=== PATIENT | male | born 1985 | race American Indian/Alaskan Native ===

== ENCOUNTER 2018-06-24 21:05 | Emergency (ER) | payer SELFPAY ==
[2018-06-24 21:21] VITALS: BMI 25.1
[2018-06-24 21:24] VITALS: RESP 18; TEMP 98.9
--- NOTE | 2018-06-24 21:32 | ED PDOC ---
Arrival/HPI <Shweta Villarreal PA-C - Last Filed: 06/26/18 16:32> - General Historian: Patient - History of Present Illness Narrative History of Present Illness (Text): 06/24/18 21:32 Jannette Muller is a 32 year old male, whose past medical history includes appendectomy and liposuction, who presents to the emergency department complaining of abdominal pain. Patient states he has been experiencing mid abdominal pain this evening with associated nausea and vomiting. Patient denies any fever, chills, diarrhea, urinary symptoms, back pain, neck pain, headache, dizziness, or any other complaints. Symptom Onset: Gradual Symptom Course: Unchanged Activities at Onset: Light Context: Home <Sanket Deluca - Last Filed: 06/27/18 19:50> - General Chief Complaint: Abdominal Pain Time Seen by Provider: 06/24/18 21:27 Past Medical History - Provider Review Nursing Documentation Reviewed: Yes - Psychiatric Hx Substance Use: No - Surgical History Hx Appendectomy: Yes (2014) <Sanket Deluca - Last Filed: 06/27/18 19:50> Family/Social History - Physician Review Nursing Documentation Reviewed: Yes Family/Social History: Unknown Family HX Smoking Status: Light Smoker < 10 Cigarettes Daily Hx Alcohol Use: No Hx Substance Use: No <Sanket Deluca - Last Filed: 06/27/18 19:50> Allergies/Home Meds <Shweta Villarreal PA-C - Last Filed: 06/26/18 16:32> <Sanket Deluca - Last Filed: 06/27/18 19:50> Allergies/Adverse Reactions: Allergies acetaminophen [From Tylenol] Allergy (Severe, Verified 06/25/18 08:20) SHORTNESS OF BREATH ibuprofen Allergy (Severe, Verified 06/25/18 08:20) SHORTNESS OF BREATH Penicillins Allergy (Severe, Verified 06/25/18 08:20) SHORTNESS OF BREATH Home Medications: Home Meds Medication Instructions Recorded Confirmed Oxycodone HCl/Acetaminophen 1 mg PO Q4 PRN 08/30/15 08/30/15 [Percocet 5-325 mg Tablet] traMADol [Ultram] 1 tab Q6 10/05/17 10/05/17 Review of Systems - Physician Review All systems were reviewed & negative as marked: Yes - Review of Systems Constitutional: Normal. absent: Fevers Eyes: Normal ENT: Normal Respiratory: Normal. absent: SOB, Cough Cardiovascular: Normal. absent: Chest Pain Gastrointestinal: Abdominal Pain, Nausea, Vomiting. absent: Diarrhea Genitourinary Male: Normal. absent: Dysuria, Frequency, Hematuria, Urinary Output Changes Musculoskeletal: Normal. absent: Back Pain, Neck Pain Skin: Normal. absent: Rash Neurological: Normal. absent: Headache, Dizziness Endocrine: Normal Hemo/Lymphatic: Normal Psychiatric: Normal <YosiSanket - Last Filed: 06/27/18 19:50> Physical Exam Vital Signs Temp Pulse Resp BP Pulse Ox 06/25/18 00:13 88 18 130/84 100 06/24/18 21:21 98.9 F 95 H 18 134/91 H 97 <Shweta Villarreal PA-C - Last Filed: 06/26/18 16:32> Vital Signs Reviewed: Yes Vital Signs Temp Pulse Resp BP Pulse Ox 06/24/18 21:21 98.9 F 95 H 18 134/91 H 97 Temperature: Afebrile Blood Pressure: Normal Pulse: Regular Respiratory Rate: Normal Appearance: Positive for: Well-Appearing, Non-Toxic, Comfortable Pain Distress: None Mental Status: Positive for: Alert and Oriented X 3 - Systems Exam Head: Present: Atraumatic, Normocephalic Pupils: Present: PERRL Extroacular Muscles: Present: EOMI Conjunctiva: Present: Normal Mouth: Present: Moist Mucous Membranes Neck: Present: Normal Range of Motion Respiratory/Chest: Present: Clear to Auscultation, Good Air Exchange. No: Respiratory Distress, Accessory Muscle Use Cardiovascular: Present: Regular Rate and Rhythm, Normal S1, S2. No: Murmurs Abdomen: No: Tenderness, Distention, Peritoneal Signs Back: Present: Normal Inspection Upper Extremity: Present: Normal Inspection. No: Cyanosis, Edema Lower Extremity: Present: Normal Inspection. No: Edema Neurological: Present: GCS=15, CN II-XII Intact, Speech Normal Skin: Present: Warm, Dry, Normal Color. No: Rashes Psychiatric: Present: Alert, Oriented x 3, Normal Insight, Normal Concentration <YolandatawandaSanket - Last Filed: 06/27/18 19:50> Medical Decision Making - Lab Interpretations Lab Results: PT 12.0 SECONDS (9.4-12.5) 06/24/18 22:14 INR 1.05 06/24/18 22:14 APTT 31.3 Seconds (25.1-36.5) 06/24/18 22:14 Total Bilirubin 0.9 mg/dL (0.2-1.3) 06/24/18 22:14 AST 61 U/L (17-59) H 06/24/18 22:14 ALT 35 U/L (7-56) 06/24/18 22:14 Alkaline Phosphatase 65 U/L (38-126) 06/24/18 22:14 Total Protein 8.5 g/dL (5.8-8.3) H 06/24/18 22:14 Albumin 4.9 g/dL (3.0-4.8) H 06/24/18 22:14 Globulin 3.7 gm/dL 06/24/18 22:14 Albumin/Globulin Ratio 1.3 (1.1-1.8) 06/24/18 22:14 Amylase 117 U/L (35-125) 06/24/18 22:14 Lipase 105 U/L (23-300) 06/24/18 22:14 Urine Color Yellow (YELLOW) 06/24/18 22:21 Urine Appearance Cloudy (CLEAR) 06/24/18 22:21 Urine pH 7.5 (4.7-8.0) 06/24/18 22:21 Ur Specific [place] 1.020 (1.005-1.035) 06/24/18 22:21 Urine Protein Trace mg/dL (<30 mg/dL) H 06/24/18 22:21 Urine Glucose (UA) Negative mg/dL (NEGATIVE) 06/24/18 22:21 Urine Ketones Trace mg/dL (NEGATIVE) H 06/24/18 22:21 Urine Blood Trace-intact (NEGATIVE) H 06/24/18 22:21 Urine Nitrate Negative (NEGATIVE) 06/24/18 22:21 Urine Bilirubin Negative (NEGATIVE) 06/24/18 22:21 Urine Urobilinogen 1.0 E.U./dL (<1 E.U./dL) H 06/24/18 22:21 Ur Leukocyte Esterase Negative Mehran/uL (NEGATIVE) 06/24/18 22:21 Urine RBC 2 - 5 /hpf (0-2) H 06/24/18 22:21 Urine WBC 0 - 2 /hpf (0-6) 06/24/18 22:21 Ur Epithelial Cells 1 - 3 /hpf (0-5) 06/24/18 22:21 Amorphous Sediment Many /hpf (NONE) 06/24/18 22:21 Urine Bacteria Many /hpf (NONE) 06/24/18 22:21 - RAD Interpretation Radiology Orders: 06/24/18 22:33 ABD & PELVIS IV CONTRAST ONLY [CT] Stat - Medication Orders Current Medication Orders: Discontinued Medications Ciprofloxacin (Cipro) 500 mg PO ONCE STA; Protocol Stop: 06/24/18 23:58 Last Admin: 06/25/18 00:10 Dose: 500 mg Famotidine (Pepcid) 20 mg IVP STAT STA Stop: 06/24/18 21:38 Last Admin: 06/24/18 21:59 Dose: 20 mg IVP Administration Document 06/24/18 21:59 AD (Rec: 06/24/18 21:59 AD [id number]) Charges for Administration # of IVP Administrations 1 Sodium Chloride (Sodium Chloride 0.9%) 1,000 mls @ 1,000 mls/hr IV .Q1H STA Stop: 06/24/18 22:36 Last Admin: 06/24/18 21:58 Dose: 1,000 mls/hr eMAR Start Stop Document 06/24/18 21:58 AD (Rec: 06/24/18 21:58 AD [id number]) Intravenous Solution Start Date 06/24/18 Start Time 21:58 Ketorolac Tromethamine (Toradol) 15 mg IVP STAT STA Stop: 06/24/18 21:38 Last Admin: 06/24/18 21:58 Dose: 15 mg MAR Pain Assessment Document 06/24/18 21:58 AD (Rec: 06/24/18 21:58 AD [id number]) Pain Reassessment Is this a pain reassessment? No Description Intensity of Pain at present 8 IVP Administration Document 06/24/18 21:58 AD (Rec: 06/24/18 21:58 AD [id number]) Charges for Administration # of IVP Administrations 1 Ondansetron HCl (Zofran Inj) 4 mg IVP STAT STA Stop: 06/24/18 21:38 Last Admin: 06/24/18 21:58 Dose: 4 mg IVP Administration Document 06/24/18 21:58 AD (Rec: 06/24/18 21:58 AD [id number]) Charges for Administration # of IVP Administrations 1 <Shweta Villarreal PA-C - Last Filed: 06/26/18 16:32> ED Course and Treatment: 06/24/18 21:32 Impression: 32 year old male complaining of mid abdominal pain, nausea, and vomiting. Plan: -- Labs, amylase, lipase -- UA -- IV fluids -- Zofran -- Pepcid -- Reassess and disposition Prior Visits: Notes and results from previous visits were reviewed. Progress Notes: 06/24/18 23:38 CT Abdomen and Pelvis: LUNG BASES: The lung bases appear clear. No pleural effusions are seen. LIVER: Unremarkable. GALLBLADDER AND BILE DUCTS: The gallbladder is contracted. No radioopaque gallstones are seen. No biliary ductal dilatation is evident. PANCREAS: Unremarkable. SPLEEN: Unremarkable. ADRENAL GLANDS: Unremarkable. KIDNEYS, URETERS, AND BLADDER: The kidneys appear within normal limits. There is no hydronephrosis or hydroureter. No urinary calculi are seen. STOMACH AND BOWEL: Thick walled fluid filled duodenum and loops of jejunum as well as ileum compatible with enteritis. Thick walled fluid filled colon is noted with involvement of all segments compatible with diffuse pancolitis. APPENDIX: No evidence of acute appendicitis on CT examination. PERITONEUM: No free fluid. No free air. LYMPH NODES: No lymphadenopathy is evident. REPRODUCTIVE: Unremarkable as visualized. VASCULATURE: No evidence of abdominal aortic aneurysm. BONES: No aggressive appearing osseous lesion. No acute osseous pathology evident. MISCELLANEOUS: Infectious and inflammatory etiologies are considered. IMPRESSION: Enterocolitis. Infectious and inflammatory etiologies are considered. Electronically signed on Jun 24, 2018 11:35:34 PM EST by: Pierre Keating M.D., ERICA Certified By [facility] & [facility] Fellowship Trained MRI and CT Specialist <Sanket Deluca - Last Filed: 06/27/18 19:50> - Scribe Statement The provider has reviewed the documentation as recorded by the [place] Provider Scribe Attestation: All medical record entries made by the Scribe were at my direction and personally dictated by me. I have reviewed the chart and agree that the record accurately reflects my personal performance of the history, physical exam, medical decision making, and the department course for this patient. I have also personally directed, reviewed, and agree with the discharge instructions and disposition. <YolandatawandaSanket - Last Filed: 06/27/18 19:50> Disposition/Present on Arrival - Notes Notes (Text): 06/26/18 16:32 CT A/P (read by Dr. Cortes): no acute intra-abdominal findings. Pt called, states that his symptoms are improving. CT results d/w him in great detail. Advised to d/c cipro as it is not necessary considering his CT is normal. Advised to f/u w/ pmd w/o fail in 1-2 days and take otc nexium in the mean time if he continues to have abdominal pain. Pt verbalize understanding of instructions and information given to him. <Shweta Villarreal PA-C - Last Filed: 06/26/18 16:32> - Present on Arrival Any Indicators Present on Arrival: No History of DVT/PE: No History of Uncontrolled Diabetes: No Urinary Catheter: No History of Decub. Ulcer: No History Surgical Site Infection Following: None - Disposition Have Diagnosis and Disposition been Completed?: Yes Disposition Time: 00:15 <YolandatawandaSanket - Last Filed: 06/27/18 19:50> - Disposition Diagnosis: Enteritis Disposition: HOME/ ROUTINE Condition: GOOD Discharge Instructions (ExitCare): Colitis (DC) Prescriptions: Ciprofloxacin HCl [Cipro] 250 mg PO BID #14 tab [facility] - Follow up with primary Maeve Sampson MD [Medical Doctor] - Follow up with primary Forms: [employer] (Kazakh), WORK NOTE
[2018-06-24] MEDS ORDERED: Sodium Chloride 0.9% 1,000 ML IV STA (21:37)
[2018-06-24 22:30] LABS: AMYLASE 117 U/L (35-125); BASO # 0.03 K/mm3 (0.0-2.0); BASO % 0.2 % (0.0-3.0); BLOOD UREA NITROGEN 10 mg/dL (7-21); CALCIUM 9.9 mg/dL (8.4-10.5); EOS % 0.2 % (1.5-5.0); GFR NON-AFRICAN AMERICAN > 60; GRAN # 8.36 (1.4-6.5); GRAN % 59.5 % (50.0-68.0); HEMOGLOBIN 15.6 g/dL (14.0-18.0); LIPASE 105 U/L (23-300); LYMPH # 4.7 (1.2-3.4); LYMPH % 33.5 % (22.0-35.0); MEAN CELL VOLUME 90.6 fl (80.0-105.0); MEAN CORPUSCULAR HEMOGLOBIN 30.5 pg (25.0-35.0); MEAN CORPUSCULAR HGB CONC 33.7 g/dl (31.0-37.0); MEAN PLATELET VOLUME 9.3 fl (7.0-11.0); MONO # 0.9 (0.1-0.6); MONO % 6.6 % (1.0-6.0); RBC 5.11 10^6/uL (3.5-6.1); RED CELL DISTRIBUTION WIDTH 13.1 % (11.5-14.5); WHITE BLOOD COUNT 14.1 10^3/uL (4.5-11.0)
[2018-06-24 22:35] LABS: INR 1.05; PARTIAL THROMBOPLASTIN TIME 31.3 Seconds (25.1-36.5)
[2018-06-24 22:37] LABS: PH,URINE 7.5 (4.7-8.0); URINE BILIRUBIN NEGATIVE (NEGATIVE); URINE BLOOD TRACE-INTACT (NEGATIVE); URINE GLUCOSE (UA) NEGATIVE (NEGATIVE); URINE LEUKOCYTE ESTERASE NEGATIVE Leu/uL (NEGATIVE); URINE PROTEIN TRACE mg/dL (<30 mg/dL)
[2018-06-24 22:39] LABS: ALB/GLOB RATIO 1.3 (1.1-1.8); ALBUMIN 4.9 g/dL (3.0-4.8); ALT/SGPT 35 U/L (7-56); AST/SGOT 61 U/L (17-59)
[2018-06-24 22:41] LABS: URINE APPEARANCE CLOUDY (CLEAR); URINE COLOR YELLOW (YELLOW)
[2018-06-24] MEDS ORDERED: Iohexol 350 MG/100 ML VIAL ONE (22:44)
[2018-06-24 23:00] LABS: URINE AMORPHOUS SEDIMENT MANY /hpf; URINE BACTERIA MANY /hpf; URINE WBC 0 - 2 /hpf (0-6)
[2018-06-25 00:57] VITALS: BP 130/84; PULSE 88; O2SAT 100
--- NOTE | 2018-06-25 07:59 | CT ---
Date of service: 06/24/2018 PROCEDURE: CT Abdomen and Pelvis with contrast HISTORY: abd pain COMPARISON: None. TECHNIQUE: Contrast dose: 97 cc of Omni 350 Radiation dose: Total exam DLP = 532.01 mGy-cm. This CT exam was performed using one or more of the following dose reduction techniques: Automated exposure control, adjustment of the mA and/or kV according to patient size, and/or use of iterative reconstruction technique. FINDINGS: LOWER THORAX: Unremarkable. LIVER: Unremarkable. No gross lesion or ductal dilatation. GALLBLADDER AND BILE DUCTS: Unremarkable. PANCREAS: Unremarkable. No gross lesion or ductal dilatation. SPLEEN: Unremarkable. ADRENALS: Unremarkable. No mass. KIDNEYS AND URETERS: Unremarkable. No hydronephrosis. No solid mass. VASCULATURE: Unremarkable. No aortic aneurysm. No aortic atherosclerotic calcification or mural plaque present. BOWEL: Unremarkable. No obstruction. No gross mural thickening. Fluid-filled small bowel loops. APPENDIX: Appendix removed PERITONEUM: Unremarkable. No free fluid. No free air. LYMPH NODES: Unremarkable. No enlarged lymph nodes. BLADDER: Unremarkable. REPRODUCTIVE: Unremarkable. BONES: No acute fracture. OTHER FINDINGS: Discrepancy with the [place] rad report. There is no evidence of enteritis or dorman colitis IMPRESSION: No acute intra-abdominal findings
== END 2018-06-25 00:13 | disposition home or self-care (01) ==
LOC: ED 21:05 → MERGE 21:05 → ED 06-25 00:13
DX: K52.9 Noninfective gastroenteritis and colitis, unspecified (principal); F17.210 Nicotine dependence, cigarettes, uncomplicated
CPT/HCPCS: 74177; 80053; 81001; 82150; 83690; 83735; 85025; 85610; 85730; 96374; 96375; 99283; J1885; J2405; J7030; Q9967